=== PATIENT | female | born 1985 | race Caucasian/White ===

== ENCOUNTER 2016-06-07 06:43 | Inpatient (IN) | payer BC ==
[2016-06-07] VITALS (9 sets, daily range): BP systolic 110–138; BP diastolic 55–88
[~2016-06-07] VITALS: Ht 157.5 cm; Wt 85.0 kg
[~2016-06-07 06:43] MED LIST: METOPROLOL TART50 MG PO; NORCO 5/3251 TABLET PO; PRENATAL TABLE1 EACH PO; SPRINTEC1 EACH PO; TORADOL10 MG PO
[2016-06-07 07:54] LABS: EOSINOPHIL (%) 0.7 % (0-5); EOSINOPHIL COUNT 0.1 K/uL (0-0.3); HEMATOCRIT 33.3 % (36.0-46.0); IMMATURE GRANULOCYTE (%) 0.4 % (0.0-0.7); IMMATURE GRANULOCYTE COUNT 0.5 K/uL; LYMPHOCYTE COUNT 2.8 K/uL (1.0-2.8); MCH 29.8 PG (29.0-34.0); MCHC 35.1 G/DL (30.0-36.0); MCV 84.9 FL (83-99); MEAN PLAT.VOLUME 10.4 uM^3 (9.5-12.4); MONOCYTE (%) 6.6 % (3-12); MONOCYTE COUNT 0.8 K/uL (0-0.8); NEUTROPHIL (%) 70.3 % (45-76); NEUTROPHIL COUNT 8.9 K/uL (1.8-6.4); PLATELET COUNT 207 K/uL (156-360); RBC DIS.WIDTH-CV 13.9 % (11.8-14.6); RBC DIS.WIDTH-SD 42.1 % (39-53); RED BLOOD COUNT 3.92 M/uL (3.80-5.20); WHITE BLOOD COUNT 12.6 K/uL (4.1-10.2)
[2016-06-07] MEDS ORDERED: PERCOCET 5/31 TABLET PO (10:55)
[2016-06-07] MEDS ORDERED: MOTRIN800 MG PO (10:55)
[2016-06-08 02:58] VITALS: BP 101/52
[2016-06-08 07:50] VITALS: BP 114/66
[2016-06-08 08:23] LABS: EOSINOPHIL (%) 0.7 % (0-5); EOSINOPHIL COUNT 0.1 K/uL (0-0.3); IMMATURE GRANULOCYTE (%) 0.3 % (0.0-0.7); LYMPHOCYTE COUNT 2.7 K/uL (1.0-2.8); MCH 28.8 PG (29.0-34.0); MCHC 33.5 G/DL (30.0-36.0); MCV 86.1 FL (83-99); MEAN PLAT.VOLUME 10.7 uM^3 (9.5-12.4); MONOCYTE (%) 5.6 % (3-12); MONOCYTE COUNT 0.7 K/uL (0-0.8); NEUTROPHIL (%) 70.7 % (45-76); NEUTROPHIL COUNT 8.4 K/uL (1.8-6.4); PLATELET COUNT 154 K/uL (156-360); RBC DIS.WIDTH-SD 43.7 % (39-53); WHITE BLOOD COUNT 11.9 K/uL (4.1-10.2)
[2016-06-08 08:24] LABS: RED BLOOD COUNT 3.02 M/uL (3.80-5.20)
[2016-06-08 11:23] VITALS: BP 113/70
[2016-06-08 15:23] VITALS: BP 113/55
[2016-06-08 19:24] VITALS: BP 121/64
[2016-06-08 22:47] VITALS: BP 116/60
[2016-06-09 03:31] VITALS: BP 120/62
[2016-06-09 07:08] VITALS: BP 121/68
[2016-06-09 15:30] VITALS: BP 117/62
[2016-06-09 22:47] VITALS: BP 124/69
[2016-06-10 07:47] VITALS: BP 130/82
== END 2016-06-10 14:50 | disposition home or self-care (01) | DRG 765 ==
LOC: LDRP-OP → 2WEST 06:44 → LDRP-OP 07-09 09:44
PROVIDERS: Midwife; Obstetrics & Gynecology
PROC: 10D00Z1 Extraction of Products of Conception, Low, Open Approach (ICD-10-PCS; principal; 2016-06-07)
DX: O75.82 Onset (spontaneous) of labor after 37 completed weeks of gestation but before 39 completed weeks gestation, with delivery by (planned) cesarean section (principal); O99.42 Diseases of the circulatory system complicating childbirth; I47.1 Supraventricular tachycardia; O99.62 Diseases of the digestive system complicating childbirth; K21.9 Gastro-esophageal reflux disease without esophagitis; O99.02 Anemia complicating childbirth; D62 Acute posthemorrhagic anemia; O99.344 Other mental disorders complicating childbirth; F32.9 Major depressive disorder, single episode, unspecified; O99.52 Diseases of the respiratory system complicating childbirth; J45.909 Unspecified asthma, uncomplicated; Z3A.39 39 weeks gestation of pregnancy; Z37.0 Single live birth
CPT/HCPCS: 85025; 86850; 86900; 86901; J1200; J1580; J2250; J2274; J2405; J2765; J7120

== ENCOUNTER 2017-08-26 05:30 | Day surgery (SDC) | payer OTHER ==
[~2017-08-26] VITALS: Ht 157.5 cm; Wt 71.7 kg
[~2017-08-26 05:30] MED LIST changes: +ASHLYNA 0.15-01 EACH PO; +BUSPAR15 MG PO; +MOTRIN800 MG PO; +PERCOCET 5/31 TABLET PO; +ZOLOFT100 MG PO
[2017-08-26 06:00] VITALS: BP 120/75
[2017-08-26] MEDS ORDERED: NORCO 5/3251 TABLET PO (08:42)
[2017-08-26 10:17] VITALS: BP 117/67
[2017-08-26 12:48] VITALS: BP 109/59
== END 2017-08-26 13:05 | disposition home or self-care (01) ==
LOC: SDC 05:30
PROVIDERS: Surgery
PROC: 0WUF4JZ Supplement Abdominal Wall with Synthetic Substitute, Percutaneous Endoscopic Approach (ICD-10-PCS; principal; 2017-08-26)
DX: K43.6 Other and unspecified ventral hernia with obstruction, without gangrene (principal); I47.1 Supraventricular tachycardia; F41.9 Anxiety disorder, unspecified; Z88.0 Allergy status to penicillin
CPT/HCPCS: 81025; C1781; J0330; J0690; J1100; J1170; J2001; J2250; J2405; J2710; J3010; J7120; J7643; S0020

== ENCOUNTER 2017-11-24 20:07 | Emergency (ER) | payer OTHER ==
[~2017-11-24] VITALS: Ht 160 cm; Wt 78.2 kg
[2017-11-24 20:55] LABS: HEMATOCRIT 36.9 % (36.0-46.0); HEMOGLOBIN 12.4 G/DL (11.9-15.5); MCH 28.1 PG (29.0-34.0); MCHC 33.6 G/DL (30.0-36.0); MCV 83.7 FL (83-99); PLATELET COUNT 323 K/uL (156-360); RBC DIS.WIDTH-CV 13.3 % (11.8-14.6); RBC DIS.WIDTH-SD 41.2 % (39-53); RED BLOOD COUNT 4.41 M/uL (3.80-5.20); WHITE BLOOD COUNT 10.8 K/uL (4.1-10.2)
[2017-11-24 21:32] LABS: ALBUMIN 4.1 g/dL (3.2-4.8); CHLORIDE 106 mEq/L (99-109); POTASSIUM 4.1 mEq/L (3.7-5.4); SODIUM 141 mEq/L (136-147)
[2017-11-24 21:35] LABS: GLUCOSE 107 mg/dL (70-99); TOTAL PROTEIN 7.5 g/dL (6.4-8.3)
[2017-11-24 21:37] LABS: TOTAL BILIRUBIN 0.3 mg/dL (0.0-1.0)
[2017-11-24 21:38] LABS: ALKALINE PHOSPHATASE 110 IU/L (3-129); CREATININE 0.9 mg/dL (0.6-1.3); GFR ESTIMATE (CALCULATED) > 59 mL/min/
[2017-11-24 21:39] LABS: UREA NITROGEN (BUN) 6 mg/dL (9-23)
[2017-11-24 21:40] LABS: AST (GOT) 13 IU/L (2-34)
[2017-11-24 21:41] LABS: ALT (GPT) 10 IU/L (3-49)
[2017-11-24 21:49] LABS: QUANTITATIVE HCG < 4.0 MIU/ML
[2017-11-24 22:37] LABS: LIPASE 47 U/L (1.0-51.0)
[2017-11-25 00:24] LABS: APPEARANCE SL.HAZY ((CLEAR)); BILIRUBIN NEGATIVE; BLOOD MODERATE; COLOR YELLOW ((YELLOW)); GLUCOSE (STRIP) NEGATIVE; KETONES NEGATIVE; LEUKOCYTES MODERATE; NITRITE NEGATIVE; PROTEIN (STRIP) 30; UROBILINOGEN 0.2 MG/DL (0.2-1.0)
[2017-11-25 00:34] LABS: BACTERIA RARE /HPF; EPITHELIAL CELLS 2+ /HPF; MUCUS TRACE /LPF; UCUL ADDED? YES
[2017-11-25] MEDS ORDERED: BACTRIM,SEPT1 TABLET PO (02:09)
[2017-11-25 02:42] VITALS: BP 122/86
== END 2017-11-25 02:43 | disposition home or self-care (01) ==
LOC: EME 20:07
DX: N39.0 Urinary tract infection, site not specified (principal); R10.84 Generalized abdominal pain; R21 Rash and other nonspecific skin eruption; J45.909 Unspecified asthma, uncomplicated; Z87.442 Personal history of urinary calculi; Z88.0 Allergy status to penicillin
CPT/HCPCS: 74177; 80053; 81003; 83690; 84702; 85027; 87086; 99281; 99284; J1885; J7030